=== PATIENT | female | born 1930 | race Caucasian/White ===

== ENCOUNTER 2019-06-28 08:47 | Emergency (ER) | payer OTHER ==
[~2019-06-28] VITALS: Ht 162.6 cm; Wt 68.0 kg
[2019-06-28 08:50] VITALS: BP 162/80
--- NOTE | 2019-06-28 08:50 | NUR ---
PT BIBA BLS TO ER BED 11
--- NOTE | 2019-06-28 08:55 | NUR ---
PT JIM from [facility] for chronic back pain. Per pt, a caregiver at the facility was transferring pt to a wheelchair "but my right foot was not working so caregiver lowered me to the floor." Pt denies trauma or injury. Pt has chronic lower back pain. Pain level 3/10, "feels uncomfortable." A&O x4. Respirations even and unlabored. Waiting for ERMD to evaluate pt. Allergies: NKA Med hx: denies
--- NOTE | 2019-06-28 10:05 | NUR ---
Pt went to [place] via [facility] with CT and MAJOR Horn.
--- NOTE | 2019-06-28 10:20 | NUR ---
Family at pt bedside
--- NOTE | 2019-06-28 11:00 | NUR ---
Pt laying supine in bed awake and alert. Family at bedside. Will continue to monitor.
[2019-06-28] MEDS ORDERED: KETOROLAC 60 MG/2 ML VIAL IM ONE (11:30)
--- NOTE | 2019-06-28 13:00 | NUR ---
Pt resting in bed with eyes closed, easily arrousable. Vital Signs Stable. Will continue to monitor.
--- NOTE | 2019-06-28 13:15 | NUR ---
Transfer of care and report given to MAJOR Hannah
--- NOTE | 2019-06-28 14:30 | NUR ---
[facility] WITH WHEELCHAIR AT BEDSIDE. PER PT, PT REFUSED TO GO ON WHEELCHAIR DUE TO PAIN. PER [facility], ETA FOR GURNEY TRANSPORT AT 1700. TECHNOLOGY COACH AND DR ALVAREZ MADE AWARE.
--- NOTE | 2019-06-28 14:50 | NUR ---
PT WITH WET DIAPER, PT CLEANED, CHANGED DIAPER, MEAL ORDERED, ALL NEEDS MET.
--- NOTE | 2019-06-28 14:54 | NUR ---
CALLED PT'S SON ROSE, UPDATED THAT PT'S TRANSPORT ETA AT 1700.
[2019-06-28] MEDS ORDERED: MORPHINE SULFATE 2 MG/ML SYR IM ONE (17:25)
[2019-06-28 17:32] VITALS: BP 140/97
--- NOTE | 2019-06-28 17:33 | NUR ---
Patient discharged with v/s stable. Written and verbal after care instructions given and explained. Patient verbalized understanding. Transferred via gurney to [facility]. All questions addressed prior to discharge. Advised to follow up with PMD. Pt's son Ant made aware.
== END 2019-06-28 17:33 | disposition home or self-care (01) ==
LOC: MED 08:47
DX: M25.551 Pain in right hip (principal)
CPT/HCPCS: 72192; 96372; 99284; J1885; J2270